=== PATIENT | female | born 1950 | race Caucasian/White ===

== ENCOUNTER → 2016-12-17 | Outpatient (CLI) | payer OTHER ==
--- NOTE | 2016-12-17 21:57 | REP ---
Clinical: Sprain. Technique: AP, lateral, bilateral oblique views of the left wrist. Findings: Age-related degenerative changes include cortical irregularity at the radial metaphysis as well as subchondral sclerosis and joint space narrowing primarily noted at the distal carpometacarpal joints. No acute fracture dislocation. Impression: Age-related arthritic degenerative changes. Signed by Cheikh Guajardo MD 12/17/2016 09:48 P
== END ==
LOC: M WUC 15:40
PROVIDERS: ATTEND Physician Assistant
DX: S63.502A Unspecified sprain of left wrist, initial encounter (principal); W18.30XA Fall on same level, unspecified, initial encounter; Y92.009 Unspecified place in unspecified non-institutional (private) residence as the place of occurrence of the external cause

== ENCOUNTER → 2016-12-23 | Outpatient (REF) | payer OTHER ==
[2016-12-23 18:06] LABS: URIC ACID 4.1 MG/DL (2.6-6.0)
[2016-12-23 19:42] LABS: MEAN CORPUSCULAR HEMOGLOBIN 29.8 pg (27.0-33.0); MEAN CORPUSCULAR HGB CONC 34.2 g/dl (32.0-36.5); MEAN CORPUSCULAR VOLUME 87.3 fl (80.0-96.0); RED CELL DISTRIBUTION WIDTH 13.2 % (11.5-14.5); WHITE BLOOD COUNT 4.2 K/mm3 (4.0-10.0)
[2016-12-23 21:41] LABS: ERYTHROCYTE SEDIMENTATION RATE 17 mm/hr (0-30)
[2016-12-23 22:08] LABS: EOSINOPHILS 1 % (0-5)
[2016-12-26 00:08] LABS: Lyme Disease IgG/IgM Antibodie <0.91 ISR (0.00-0.90); Lyme Disease IgM Ab Quantitati <0.80 index (0.00-0.79)
== END ==
LOC: M LABDRAW1 16:28
PROVIDERS: ATTEND Physician Assistant Surgical
DX: S63.592A Other specified sprain of left wrist, initial encounter (principal); W18.30XA Fall on same level, unspecified, initial encounter; Y92.009 Unspecified place in unspecified non-institutional (private) residence as the place of occurrence of the external cause

== ENCOUNTER → 2017-02-22 | Outpatient (CLI) | payer MEDICARE, OTHER ==
--- NOTE | 2017-02-22 12:51 | REP ---
Clinical: Trauma. Technique: AP, lateral, bilateral oblique views of the left foot. Comparison: 08/10/2010 Findings: Surgical changes with metallic hardware identified at the first tarsometatarsal joint and heads of the second third and fifth metatarsal bones. Degenerative changes are appreciated most pronounced at the second and third interphalangeal joints where prior surgical intervention is suggested. No acute fracture or dislocation. No significant swelling. No subcutaneous emphysema or abnormal radiodense foreign body. Impression: Postsurgical and arthritic changes. No obvious acute fracture dislocation. Signed by Cheikh Guajardo MD 02/22/2017 12:43 P
--- NOTE | 2017-02-22 12:53 | REP ---
Clinical: Trauma. Technique: AP, lateral, bilateral oblique views to the left ankle. Findings: Lateral soft tissue swelling appreciated. Degenerative changes are noted. No acute fracture or dislocation. Impression: Lateral swelling. No acute fracture or dislocation identified. Signed by Cheikh Guajardo MD 02/22/2017 12:44 P
== END ==
LOC: M WUC 12:20
PROVIDERS: ATTEND Physician Assistant
DX: M25.572 Pain in left ankle and joints of left foot (principal)

== ENCOUNTER → 2017-10-26 | Outpatient (REF) | payer MEDICARE, OTHER | LOC: M LAB REF 18:19 | DX: N39.0 Urinary tract infection, site not specified (principal) | CPT/HCPCS: 87186 ==

== ENCOUNTER → 2018-01-01 | Outpatient (REF) | payer MEDICARE, OTHER ==
[2018-01-01 17:05] LABS: BASO % 0.8 % (0.0-1.0); EOS % 0.6 % (0.0-3.0); HEMATOCRIT 36.5 % (36.0-47.0); HEMOGLOBIN 12.4 g/dl (12.0-15.5); IMMATURE GRANULOCYTE % 0.4 % (0-3.0); LYMPH # 1.9 10^3/uL (1.5-4.5); LYMPH % 36.6 % (24.0-44.0); MEAN CORPUSCULAR VOLUME 85.3 fl (80.0-96.0); MONO # 0.4 10^3/uL (0.0-0.8); MONO % 6.8 % (0.0-5.0); NEUTROPHILS # 2.8 10^3/uL (1.8-7.7); NEUTROPHILS % 54.8 % (36.0-66.0); PLATELET COUNT, AUTOMATED 327 10^3/uL (150-450); RED BLOOD COUNT 4.28 10^6/uL (4.00-5.40); RED CELL DISTRIBUTION WIDTH 12.5 % (11.5-14.5); WHITE BLOOD COUNT 5.2 10^3/uL (4.0-10.0)
[2018-01-01 17:15] LABS: FOLATE > 24.0 NG/ML; VITAMIN B12 LEVEL 1056 PG/ML
[2018-01-01 17:30] LABS: ALBUMIN 3.7 GM/DL (3.2-5.2); ALBUMIN/GLOBULIN RATIO 1.03 (1.00-1.93); ALKALINE PHOSPHATASE 56 U/L (45-117); ALT/SGPT 38 U/L (12-78); ANION GAP 7 MEQ/L (8-16); AST/SGOT 29 U/L (7-37); BILIRUBIN,TOTAL 0.5 MG/DL (0.2-1.0); BLOOD UREA NITROGEN 18 MG/DL (7-18); CALCIUM LEVEL 9.4 MG/DL (8.8-10.2); CARBON DIOXIDE LEVEL 27 MEQ/L (21-32); CHLORIDE LEVEL 107 MEQ/L (98-107); CREATININE FOR GFR 0.88 MG/DL (0.55-1.30); GLOMERULAR FILTRATION RATE > 60.0 (>45); GLUCOSE, FASTING 78 MG/DL (70-100); POTASSIUM SERUM 3.8 MEQ/L (3.5-5.1); RHEUMATOID FACTOR QUANT < 10.0 IU/ML (<15.0); SODIUM LEVEL 141 MEQ/L (136-145); TOTAL PROTEIN 7.3 GM/DL (6.4-8.2)
[2018-01-01 18:31] LABS: ERYTHROCYTE SEDIMENTATION RATE 29 mm/hr (0-30)
[2018-01-05 13:09] LABS: ALBUMIN % 59.2 % (55.8-66.1); ALPHA-1-GLOBULIN % 4.1 % (2.9-4.9); ALPHA-2-GLOBULINS % 10.9 % (7.1-11.8)
[2018-01-05 13:10] LABS: ALBUMIN 4.32 GM/DL (3.29-5.55); BETA-1-GLOBULINS 0.47 GM/DL (0.28-0.60); BETA-1-GLOBULINS % 6.4 % (4.7-7.2); BETA-2-GLOBULINS % 5.5 % (3.2-6.5); GAMMA GLOBULIN % 13.9 % (11.1-18.8); GAMMA GLOBULINS 1.01 GM/DL (0.65-1.58)
[2018-01-08 08:11] LABS: ANTINUCLEAR ANTIBODIES DIRECT Negative (Negative); VITAMIN B1 LEVEL WHOLE BLOOD 145.2 nmol/L (66.5-200.0); VITAMIN B6,PYRIDOXAL PHOSPHATE 16.6 ug/L (2.0-32.8); VITAMIN E(ALPHA TOCOPHEROL) 19.3 mg/L (9.0-29.0); VITAMIN E(GAMMA TOCOPHEROL) 1.1 mg/L (0.5-4.9)
== END ==
LOC: M LABNEURO 13:45
DX: R42 Dizziness and giddiness (principal)
CPT/HCPCS: 82746

== ENCOUNTER → 2018-10-13 | Outpatient (REF) | payer MEDICARE, OTHER ==
[2018-10-15 14:28] LABS: ANTINUCLEAR ANTIBODIES DIRECT Negative (Negative)
== END ==
LOC: M LABNEURO 13:58
PROVIDERS: ATTEND Physician Assistant Medical
DX: R68.2 Dry mouth, unspecified (principal); H04.129 Dry eye syndrome of unspecified lacrimal gland